=== PATIENT | female | born 1980 | race Caucasian/White ===

== ENCOUNTER 2017-02-03 10:44 | Outpatient (CLI) | payer SELFPAY ==
[~2017-02-03] VITALS: Ht 162.6 cm; Wt 81.8 kg
[2017-02-03 10:54] VITALS: BP 117/69
== END 2017-02-03 17:00 | disposition home or self-care (01) ==
LOC: LDOP 10:44
PROVIDERS: ATTEND Obstetrics & Gynecology Gynecology
DX: O09.523 Supervision of elderly multigravida, third trimester (principal); O36.8130 Decreased fetal movements, third trimester, not applicable or unspecified; O99.513 Diseases of the respiratory system complicating pregnancy, third trimester; J45.909 Unspecified asthma, uncomplicated; Z3A.39 39 weeks gestation of pregnancy
CPT/HCPCS: 59025; 76815; 99201; G0463

== ENCOUNTER 2017-02-12 20:24 | Inpatient (IN) | payer BC, OTHER ==
[~2017-02-12] VITALS: Ht 162.6 cm; Wt 85.0 kg
[2017-02-12] MEDS ORDERED: OXYTOCIN 30U/ 0.9% NaCL 500ML 500 ML IV PRN (20:46)
[2017-02-12] MEDS ORDERED: OXYTOCIN 30U/ 0.9% NaCL 500ML 500 ML IV ONE (20:46)
[2017-02-12] MEDS ORDERED: FENTANYL PF 100 MCG/2ML IV PRN (21:00)
[2017-02-12] MEDS ORDERED: CALCIUM CARBONATE 500 MG TAB.CHEW PO PRN (21:00)
[2017-02-12] MEDS ORDERED: FENTANYL PF 100 MCG/2ML IVPush PRN (21:00)
[2017-02-12] MEDS: LACTATED RINGERS 1,000 ML IV SCH (21:00)
[2017-02-12] MEDS ORDERED: ONDANSETRON 2MG/ML, 2ML IVPush PRN (21:00)
[2017-02-12] MEDS ORDERED: TERBUTALINE 1 MG/ML, 1ML IVPush PRN (21:00)
[2017-02-12] MEDS ORDERED: NEWBORN KIT ONE (21:01)
[2017-02-12] MEDS ORDERED: OXYTOCIN 30U/ 0.9% NaCL 500ML 500 ML ONE (21:01)
[2017-02-12] MEDS ORDERED: CALCIUM CARBONATE 500 MG TAB.CHEW ONE (22:44)
[2017-02-13] MEDS ORDERED: ACETAMINOPHEN 325 MG TABLET ONE ×3 (01:19→20:19)
[2017-02-13] MEDS: ACETAMINOPHEN 325 MG TABLET PO PRN ×3 (01:21→20:31)
[2017-02-13] MEDS: LACTATED RINGERS 1,000 ML IV SCH ×5 (01:24→21:03)
[2017-02-13] MEDS: D5%-LACTATED RINGERS 1,000 ML IV SCH ×4 (04:46→20:46)
[2017-02-13] MEDS ORDERED: VALA500T4 PO (07:21)
[2017-02-13] MEDS ORDERED: PREN1TAB60 PO (07:25)
[2017-02-13 07:26] VITALS: BP 119/69
[2017-02-13 09:35] LABS: HIV 1&2 ANTIBODY SCREEN Nonreactive (Nonreactive); HIV-1 p24 ANTIGEN Nonreactive (Nonreactive)
[2017-02-13] MEDS ORDERED: LACTATED RINGERS 1,000 ML INTUTE SCH (10:30)
[2017-02-13] MEDS: LACTATED RINGERS 1,000 ML INTUTE PRN ×2 (10:40→16:50)
[2017-02-13] MEDS ORDERED: SODIUM CITRATE/CITRIC ACID 30 ML UDC ONE ×2 (10:48→20:53)
[2017-02-13] MEDS ORDERED: METOCLOPRAMIDE 5 MG/ML, 2ML ONE ×2 (10:48→20:53)
[2017-02-13] MEDS ORDERED: LACTATED RINGERS 1,000 ML IVBOLUS ONE (21:00)
[2017-02-13] MEDS ORDERED: OXYTOCIN 30U/ 0.9% NaCL 500ML 500 ML IV SCH (21:00)
[2017-02-13] MEDS ORDERED: LACTATED RINGERS 1,000 ML IV SCH (21:00)
[2017-02-13] MEDS ORDERED: morphine SULFATE/PF 0.5 MG/ML, 10ML ONE (21:02)
[2017-02-13] MEDS: OXYTOCIN 30U/ 0.9% NaCL 500ML 500 ML IV SCH (21:03)
[2017-02-13] MEDS ORDERED: PHENYLEPHRINE 10 MG/ML ONE (21:12)
[2017-02-13] MEDS ORDERED: CEFAZOLIN 1,000 MG ONE (21:12)
[2017-02-13] MEDS ORDERED: EPHEDRINE 50 MG/ML, 1ML ONE (21:12)
[2017-02-13] MEDS ORDERED: morphine SULFATE 10 MG/ML, 1ML IVPush PRN (21:30)
[2017-02-13] MEDS ORDERED: RHOGAM FROM BLOOD BANK 1 NOTE EA IM/IV ONE (21:30)
[2017-02-13] MEDS ORDERED: ONDANSETRON 2MG/ML, 2ML IV PRN (21:30)
[2017-02-13] MEDS ORDERED: METOCLOPRAMIDE 5 MG/ML, 2ML IV ONE (21:30)
[2017-02-13] MEDS ORDERED: DIPH,PERTUSS(ACELL),TET VAC/PF NC IM-VACC PRN (21:30)
[2017-02-13] MEDS ORDERED: CALCIUM CARBONATE 500 MG TAB.CHEW PO PRN (21:30)
[2017-02-13] MEDS ORDERED: MISOPROSTOL 200 MCG TABLET PR PRN (21:30)
[2017-02-13] MEDS ORDERED: MEASLES,MUMPS&RUBELLA VACC/PF 0.5 ML SQ-VACC PRN (21:30)
[2017-02-13] MEDS ORDERED: SODIUM CITRATE/CITRIC ACID 30 ML UDC PO ONE (21:30)
[2017-02-13] MEDS ORDERED: SIMETHICONE 80 MG CHEW TAB PO PRN (21:30)
[2017-02-13] MEDS ORDERED: OXYcodone 5 MG/5 ML ORAL.SOL UDC ONE (23:31)
[2017-02-13] MEDS ORDERED: KETOROLAC 30 MG/1 ML ONE (23:31)
[2017-02-13] MEDS: KETOROLAC 30 MG/1 ML IV SCH (23:35)
[2017-02-14 00:15] VITALS: BP 114/72
[2017-02-14] MEDS ORDERED: ONDANSETRON 2MG/ML, 2ML IVPush PRN (01:00)
[2017-02-14] MEDS ORDERED: HYDROmorphone 1 MG/ML, 1ML IVPush PRN (01:00)
[2017-02-14] MEDS ORDERED: NALOXONE 0.4 MG/ML, 1ML IV PRN (01:00)
[2017-02-14] MEDS ORDERED: OXYcodone/APAP 5/325MG TABLET PO PRN (01:00)
[2017-02-14] MEDS ORDERED: DIPHENHYDRAMINE 50 MG/ML, 1ML IV PRN (01:00)
[2017-02-14] MEDS: KETOROLAC 30 MG/1 ML IVPush SCH ×3 (01:00→13:00)
[2017-02-14] MEDS: OXYcodone/APAP 5/325MG TABLET PO PRN ×4 (03:34→15:55)
[2017-02-14 04:50] VITALS: BP 119/77
[2017-02-14] MEDS: LACTATED RINGERS 1,000 ML IV SCH ×4 (05:30→17:03)
[2017-02-14] MEDS: KETOROLAC 30 MG/1 ML IV SCH ×3 (05:50→17:52)
[2017-02-14] MEDS: OXYTOCIN 30U/ 0.9% NaCL 500ML 500 ML IV SCH ×2 (07:03→17:03)
[2017-02-14] MEDS: DOCUSATE 100 MG CAPSULE PO PRN ×2 (07:38→19:36)
[2017-02-14 08:31] VITALS: BP 121/80
[2017-02-14] MEDS: PRENATAL VIT/IRON/FA 1 EACH TABLET PO SCH (09:00)
[2017-02-14 12:40] VITALS: BP 131/82
[2017-02-14] MEDS: OXYcodone IR 5MG TABLET PO PRN (19:37)
[2017-02-14 20:10] VITALS: BP 117/72
[2017-02-14] MEDS ORDERED: OXYcodone 5 MG/5 ML ORAL.SOL UDC PO PRN (23:00)
[2017-02-15] MEDS: OXYcodone/APAP 5/325MG TABLET PO PRN (00:09)
[2017-02-15] MEDS: KETOROLAC 30 MG/1 ML IV SCH ×4 (00:09→19:38)
[2017-02-15] MEDS: OXYcodone IR 5MG TABLET PO PRN ×4 (04:53→20:14)
[2017-02-15 07:50] VITALS: BP 138/87
[2017-02-15] MEDS ORDERED: IBUP-1222 PO (09:55)
[2017-02-15] MEDS ORDERED: OXYC-302 PO (09:56)
[2017-02-15] MEDS ORDERED: DOCU-30 PO (09:56)
[2017-02-15] MEDS: PRENATAL VIT/IRON/FA 1 EACH TABLET PO SCH (11:44)
[2017-02-15] MEDS: DOCUSATE 100 MG CAPSULE PO PRN ×2 (11:44→20:13)
[2017-02-15 23:30] VITALS: BP 120/118
[2017-02-16] MEDS: OXYcodone IR 5MG TABLET PO PRN ×5 (00:07→21:04)
[2017-02-16] MEDS: IBUPROFEN 600 MG TABLET PO PRN ×3 (04:00→21:03)
[2017-02-16 08:00] VITALS: BP 102/62
[2017-02-16] MEDS: PRENATAL VIT/IRON/FA 1 EACH TABLET PO SCH (09:00)
[2017-02-16] MEDS: DOCUSATE 100 MG CAPSULE PO PRN ×2 (13:10→21:03)
[2017-02-16 19:50] VITALS: BP 126/83
[2017-02-17] MEDS: OXYcodone IR 5MG TABLET PO PRN ×3 (01:31→10:23)
[2017-02-17 06:10] VITALS: BP 127/79
[2017-02-17] MEDS: IBUPROFEN 600 MG TABLET PO PRN (06:10)
[2017-02-17] MEDS: PRENATAL VIT/IRON/FA 1 EACH TABLET PO SCH (10:24)
== END 2017-02-17 13:30 | disposition home or self-care (01) | DRG 765 ==
LOC: LDOP 20:24 → LDIP 20:46 → 2NW 02-13 23:35
PROVIDERS: ADMIT Obstetrics & Gynecology Gynecology; ATTEND Obstetrics & Gynecology Gynecology
PROC: 10D00Z1 Extraction of Products of Conception, Low, Open Approach (ICD-10-PCS; principal; 2017-02-13)
DX: O76 Abnormality in fetal heart rate and rhythm complicating labor and delivery (principal); O99.834 Other infection carrier state complicating childbirth; O99.52 Diseases of the respiratory system complicating childbirth; J45.909 Unspecified asthma, uncomplicated; Z88.6 Allergy status to analgesic agent; Z37.0 Single live birth; Z3A.40 40 weeks gestation of pregnancy; Z88.5 Allergy status to narcotic agent; Z22.4 Carrier of infections with a predominantly sexual mode of transmission
CPT/HCPCS: 36415; 82803; 85025; 86592; 86703; 86762; 86850; 86900; 87340; 87899; J0690; J1885; J2274; J2405; G0435; J1200; J2370; J2590; J2765; J7120; J7121

== ENCOUNTER → 2018-06-29 | Outpatient (CLI) | payer OTHER, BC ==
[~2018-06-29] MED LIST: DOCU-131 PO; IBUP-1222 PO; OXYC-302 PO; PREN1TAB60 PO; VALA500T4 PO
== END | disposition home or self-care (01) ==
LOC: CFH 09:50
PROVIDERS: ATTEND Obstetrics & Gynecology
DX: Z12.31 Encounter for screening mammogram for malignant neoplasm of breast (principal); Z80.3 Family history of malignant neoplasm of breast
CPT/HCPCS: 76377; 76642; 77063; 77067

== ENCOUNTER 2018-09-20 09:09 | Outpatient (CLI) | payer OTHER, BC | END 2018-09-20 23:59 | disposition home or self-care (01) | LOC: PETCFH 09:09 | PROVIDERS: ATTEND Nurse Practitioner Family | DX: R94.6 Abnormal results of thyroid function studies (principal) | CPT/HCPCS: 78013; A9516 ==

== ENCOUNTER 2019-10-23 10:57 | Outpatient (CLI) | payer OTHER, BC | END 2019-10-23 23:59 | disposition home or self-care (01) | LOC: CFH 10:57 | PROVIDERS: ATTEND Orthopaedic Surgery | DX: M47.816 Spondylosis without myelopathy or radiculopathy, lumbar region (principal); M25.552 Pain in left hip; M95.3 Acquired deformity of neck; M95.2 Other acquired deformity of head ==

== ENCOUNTER 2020-08-21 09:35 | Outpatient (CLI) | payer OTHER, BC ==
[2020-08-21] MEDS ORDERED: GADOTERATE 10 MMOL/20 ML VIAL ONE (10:00)
== END 2020-08-21 23:59 | disposition home or self-care (01) ==
LOC: CFH 09:35
PROVIDERS: ATTEND Surgery
DX: C50.411 Malignant neoplasm of upper-outer quadrant of right female breast (principal); N63.11 Unspecified lump in the right breast, upper outer quadrant
CPT/HCPCS: 77049; A9575; C8908

== ENCOUNTER 2020-08-29 09:15 | Outpatient (CLI) | payer BC ==
[2020-08-29] MEDS ORDERED: LEVA15HF4 INH (09:50)
[2020-08-29] MEDS ORDERED: OMAL150V SC (09:50)
[2020-08-29] MEDS ORDERED: MELO7.5T31 PO (09:50)
[2020-08-29] MEDS ORDERED: BUDE10.22 INH (09:50)
[2020-08-29] MEDS ORDERED: IRON PO (10:03)
== END 2020-08-29 23:59 | disposition home or self-care (01) ==
LOC: STAR 09:15
PROVIDERS: ATTEND Surgery
DX: Z02.9 Encounter for administrative examinations, unspecified (principal)

== ENCOUNTER 2020-09-04 07:32 | Day surgery (SDC) | payer BC, OTHER ==
[~2020-09-04] VITALS: Ht 162.6 cm; Wt 85.5 kg
[~2020-09-04 07:32] MED LIST changes: +BUDE10.22 INH; +BUPIVACAINE/PF 0.5% ONE; +EPINEPHRINE 1 MG/ML, 1ML ONE; +IRON PO; +LEVA15HF4 INH; +MELO7.5T31 PO; +OMAL150V SC
[2020-09-04] MEDS ORDERED: ROCURONIUM 10MG/ML,5ML ONE (09:42)
[2020-09-04] MEDS ORDERED: CEFAZOLIN 1,000 MG ONE ×2 (09:42)
[2020-09-04] MEDS ORDERED: PROPOFOL 10 MG/ML, 20ML ONE (09:42)
[2020-09-04] MEDS ORDERED: ONDANSETRON 2MG/ML, 2ML ONE (09:42)
[2020-09-04] MEDS ORDERED: FENTANYL PF 100 MCG/2ML ONE (09:42)
[2020-09-04] MEDS ORDERED: MIDAZOLAM 1 MG/ML, 2ML ONE (09:42)
[2020-09-04] MEDS ORDERED: LIDOCAINE-MPF 2% ,5ML ONE (09:42)
[2020-09-04 09:49] VITALS: BP 124/84
[2020-09-04] MEDS ORDERED: CHLORHEXIDINE 15 ML UDC ONE (09:56)
[2020-09-04] MEDS ORDERED: SCOPOLAMINE 1MG PATCH TD SCH (10:00)
[2020-09-04] MEDS ORDERED: LACTATED RINGERS 1,000 ML IV SCH (10:00)
[2020-09-04] MEDS ORDERED: GABAPENTIN 300 MG CAPSULE PO ONE (10:00)
[2020-09-04] MEDS ORDERED: ACETAMINOPHEN 500 MG TABLET PO ONE (10:00)
[2020-09-04] MEDS ORDERED: CHLORHEXIDINE 15 ML UDC MM ONE (10:00)
[2020-09-04] MEDS ORDERED: hydrALAzine 20 MG/ML, 1ML IV PRN (10:30)
[2020-09-04] MEDS ORDERED: DIPHENHYDRAMINE 50 MG/ML, 1ML IVPush PRN (10:30)
[2020-09-04] MEDS ORDERED: OXYcodone 5 MG/5 ML ORAL.SOL UDC PO PRN (10:30)
[2020-09-04] MEDS ORDERED: ONDANSETRON 2MG/ML, 2ML IVPush PRN (10:30)
[2020-09-04] MEDS ORDERED: FENTANYL PF 100 MCG/2ML IV PRN (10:30)
[2020-09-04] MEDS ORDERED: DIAZEPAM 5 MG/ML, 2ML IVPush PRN (10:30)
[2020-09-04] MEDS ORDERED: LABETALOL 5MG/ML, 20ML IV PRN (10:30)
[2020-09-04] MEDS ORDERED: ALBUTEROL SULFATE 2.5 MG/3 ML NPPB PRN (10:30)
[2020-09-04] MEDS ORDERED: PROMETHAZINE 25 MG/ML, 1ML IVPush PRN (10:30)
[2020-09-04] MEDS ORDERED: HYDROmorphone 1 MG/ML, 1ML INJ IVPush PRN (10:30)
[2020-09-04] MEDS ORDERED: MEPERIDINE/PF 25MG/0.5ML IVPush PRN (10:30)
[2020-09-04] MEDS ORDERED: MEPERIDINE/PF 25MG/ML,1ML ONE (11:30)
[2020-09-04] MEDS ORDERED: ONDA4TAB7 PO (11:38)
[2020-09-04] MEDS ORDERED: OXYC-302 PO (11:38)
[2020-09-04] MEDS ORDERED: SODIUM BICARBONATE 4.0%, 5ML ONE (15:48)
[2020-09-04] MEDS ORDERED: LIDOCAINE 1%, 20ML ONE (15:48)
== END 2020-09-04 13:20 | disposition home or self-care (01) ==
LOC: CFH 07:32 → EDSTATUS 11:00 → OUT 13:20
PROVIDERS: ATTEND Surgery
DX: C50.411 Malignant neoplasm of upper-outer quadrant of right female breast (principal); J45.909 Unspecified asthma, uncomplicated; E66.9 Obesity, unspecified; Z88.5 Allergy status to narcotic agent; Z79.899 Other long term (current) drug therapy; Z68.33 Body mass index [BMI] 33.0-33.9, adult; Z72.89 Other problems related to lifestyle; Z98.890 Other specified postprocedural states
CPT/HCPCS: 19285; 19301; 38525; 38792; 76098; 81025; 88307; 88329; A9541; J0171; J0690; J2175; J2250; J2405; J2704; J3010; J7120

== ENCOUNTER 2020-10-01 07:24 | Outpatient (CLI) | payer BC, OTHER ==
[~2020-10-01 07:24] MED LIST changes: -BUPIVACAINE/PF 0.5% ONE; -EPINEPHRINE 1 MG/ML, 1ML ONE; +ONDA4TAB7 PO; -OXYC-302 PO; +OXYC1TAB14 PO
== END 2020-10-01 23:59 | disposition home or self-care (01) ==
LOC: ROC 07:24
PROVIDERS: ATTEND Radiology Radiation Oncology
DX: C50.411 Malignant neoplasm of upper-outer quadrant of right female breast (principal); J45.909 Unspecified asthma, uncomplicated; E66.9 Obesity, unspecified; Z68.33 Body mass index [BMI] 33.0-33.9, adult; Z17.0 Estrogen receptor positive status [ER+]; Z79.899 Other long term (current) drug therapy
CPT/HCPCS: 99214; G0463

== ENCOUNTER 2020-11-28 10:53 | Outpatient (CLI) | payer BC, OTHER ==
[~2020-11-28 10:53] MED LIST changes: +OXYC1TAB12 PO; -OXYC1TAB14 PO
[2020-11-28 12:10] LABS: BASOPHILS % (AUTO) 1 % (0-1); EOSINOPHILS % (AUTO) 1 % (1-7); LYMPHOCYTES % (AUTO) 27 % (22-44); MEAN CORPUSCULAR HEMOGLOBIN 31.5 pg (27.0-34.8); MEAN CORPUSCULAR HGB CONC 33.6 g/dL (32.4-35.8); MEAN PLATELET VOLUME 7.6 fL (7.4-10.4); MONOCYTES % (AUTO) 8 % (2-9); NEUTROPHILS % (AUTO) 63 % (42-75); PLATELET COUNT 238 x10^3/uL (130-400); RED CELL DISTRIBUTION WIDTH 12.7 % (9.6-15.2)
[2020-11-28 12:11] LABS: HCG UR SG 1.016 (1.003-1.030); MICROSCOPIC NOT IND
[2020-11-28] MEDS ORDERED: CALC600T60 PO (13:39)
[2020-11-28] MEDS ORDERED: ACET650S21 PO (13:39)
[2020-11-28] MEDS ORDERED: TAMO20TA PO (13:39)
[2020-11-28] MEDS ORDERED: DIPH25CA61 PO (13:39)
[2020-11-28] MEDS ORDERED: CETI10TA76 PO (13:39)
[2020-11-28] MEDS ORDERED: BUDE10.2 INH (13:39)
== END 2020-11-28 23:59 | disposition home or self-care (01) ==
LOC: STAR 10:53
PROVIDERS: ATTEND Obstetrics & Gynecology
DX: Z01.812 Encounter for preprocedural laboratory examination (principal); Z20.822 Contact with and (suspected) exposure to COVID-19; N94.6 Dysmenorrhea, unspecified; N92.0 Excessive and frequent menstruation with regular cycle
CPT/HCPCS: 36415; 81003; 81025; 85025; U0003

== ENCOUNTER 2020-12-04 05:29 | Day surgery (SDC) | payer BC, OTHER ==
[~2020-12-04] VITALS: Ht 162.6 cm; Wt 87.0 kg
[~2020-12-04 05:29] MED LIST changes: +ACET650S21 PO; +BUDE10.2 INH; +CALC600T60 PO; +CETI10TA76 PO; +DIPH25CA61 PO; -OXYC1TAB12 PO; +OXYC1TAB14 PO; +TAMO20TA PO
[2020-12-04 06:10] VITALS: BP 116/84
[2020-12-04] MEDS ORDERED: ACETAMINOPHEN 500 MG TABLET PO ONE (06:30)
[2020-12-04] MEDS ORDERED: CHLORHEXIDINE 15 ML UDC PO ONE (06:30)
[2020-12-04] MEDS ORDERED: LACTATED RINGERS 1,000 ML IV SCH (06:30)
[2020-12-04 06:31] LABS: HCG UR SG 1.005 (1.003-1.030)
[2020-12-04] MEDS ORDERED: EPINEPHRINE 1 MG/ML, 1ML ONE (06:56)
[2020-12-04] MEDS ORDERED: FLUORESCEIN SODIUM 500 MG/5 ML ONE (06:56)
[2020-12-04] MEDS ORDERED: BUPIVACAINE/PF 0.25% ONE (06:57)
[2020-12-04] MEDS ORDERED: MIDAZOLAM 1 MG/ML, 2ML ONE (06:58)
[2020-12-04] MEDS ORDERED: FENTANYL PF 100 MCG/2ML ONE ×2 (06:59→09:23)
[2020-12-04] MEDS ORDERED: CEFAZOLIN PMX 2GM/50ML 50 ML IVPB ONE (07:00)
[2020-12-04] MEDS ORDERED: CEFAZOLIN 2,000 MG in SODIUM CHLORIDE 0.9% 50 ML IV ONE (07:00)
[2020-12-04] MEDS ORDERED: MEPERIDINE/PF 25MG/0.5ML IVPush PRN (07:30)
[2020-12-04] MEDS ORDERED: ONDANSETRON 2MG/ML, 2ML IVPush PRN (07:30)
[2020-12-04] MEDS ORDERED: HYDROmorphone 1 MG/ML, 1ML INJ IVPush PRN (07:30)
[2020-12-04] MEDS ORDERED: PROMETHAZINE 25 MG/ML, 1ML IVPush PRN (07:30)
[2020-12-04] MEDS ORDERED: FENTANYL PF 100 MCG/2ML IV PRN (07:30)
[2020-12-04] MEDS ORDERED: SUCCINYLCHOLINE 20 MG/ML, 10ML ONE (07:57)
[2020-12-04] MEDS ORDERED: DEXAMETHASONE 4 MG/ML, 1ML ONE (07:57)
[2020-12-04] MEDS ORDERED: ONDANSETRON 2MG/ML, 2ML ONE (07:57)
[2020-12-04] MEDS ORDERED: PROPOFOL 10 MG/ML, 20ML ONE (07:57)
[2020-12-04] MEDS ORDERED: NEOSTIGMINE 1 MG/ML, 10ML ONE (07:57)
[2020-12-04] MEDS ORDERED: ROCURONIUM 10MG/ML,5ML ONE (07:57)
[2020-12-04] MEDS ORDERED: GLYCOPYRROLATE 0.2MG/1ML, 5ML ONE (07:57)
[2020-12-04] MEDS ORDERED: CEFAZOLIN 1,000 MG ONE (07:57)
[2020-12-04] MEDS ORDERED: OXYcodone 5 MG/5 ML ORAL.SOL UDC ONE (09:23)
[2020-12-04] MEDS ORDERED: MEPERIDINE/PF 25MG/ML,1ML ONE (09:23)
[2020-12-04] MEDS: OXYcodone 5 MG/5 ML ORAL.SOL UDC PO PRN ×2 (09:28→10:55)
[2020-12-04] MEDS ORDERED: IBUPROFEN 600 MG TABLET PO PRN (11:00)
== END 2020-12-04 12:55 | disposition home or self-care (01) ==
LOC: OUT 05:29
PROVIDERS: ATTEND Obstetrics & Gynecology
DX: N92.0 Excessive and frequent menstruation with regular cycle (principal); N83.8 Other noninflammatory disorders of ovary, fallopian tube and broad ligament; N73.6 Female pelvic peritoneal adhesions (postinfective); J45.909 Unspecified asthma, uncomplicated; Z85.3 Personal history of malignant neoplasm of breast; Z88.5 Allergy status to narcotic agent; Z88.8 Allergy status to other drugs, medicaments and biological substances; Z98.890 Other specified postprocedural states; Z82.61 Family history of arthritis; Z80.3 Family history of malignant neoplasm of breast; Z82.49 Family history of ischemic heart disease and other diseases of the circulatory system
CPT/HCPCS: 36415; 58552; 81025; 85014; 85018; 86850; 86900; 88307; J0171; J0330; J0690; J1100; J1170; J2175; J2250; J2405; J2704; J2710; J3010; J7120

== ENCOUNTER → 2020-12-09 | Outpatient (CLI) | payer BC, OTHER | END | disposition home or self-care (01) | LOC: ROC 10:01 | PROVIDERS: ATTEND Radiology Radiation Oncology | DX: Z08 Encounter for follow-up examination after completed treatment for malignant neoplasm (principal); Z85.3 Personal history of malignant neoplasm of breast; J45.909 Unspecified asthma, uncomplicated; E66.9 Obesity, unspecified; Z68.33 Body mass index [BMI] 33.0-33.9, adult; Z17.0 Estrogen receptor positive status [ER+]; Z79.899 Other long term (current) drug therapy; Z72.89 Other problems related to lifestyle | CPT/HCPCS: 99213; G0463 ==

== ENCOUNTER 2021-05-07 07:24 | Outpatient (CLI) | payer BC, OTHER ==
[~2021-05-07 07:24] MED LIST changes: +OXYC1TAB12 PO; -OXYC1TAB14 PO
== END 2021-05-07 23:59 | disposition home or self-care (01) ==
LOC: ROC 07:24
PROVIDERS: ATTEND Radiology Radiation Oncology
DX: Z08 Encounter for follow-up examination after completed treatment for malignant neoplasm (principal); Z85.3 Personal history of malignant neoplasm of breast
CPT/HCPCS: 99213; G0463